=== PATIENT | male | born 1980 | race Caucasian/White ===

== ENCOUNTER 2018-04-07 10:27 | Emergency (ER) | payer BC ==
[~2018-04-07] VITALS: Ht 180.3 cm; Wt 99.8 kg
[2018-04-07 10:30] VITALS: BP_SYST 142
[2018-04-07] MEDS: KETOROLAC TROMETHAMINE 60 MG/2 ML VIAL IM ONE (10:52)
[2018-04-07 12:02] VITALS: BP_SYST 112
== END 2018-04-07 12:02 | disposition home or self-care (01) ==
LOC: SED 10:27
DX: S22.32XA Fracture of one rib, left side, initial encounter for closed fracture (principal); S00.83XA Contusion of other part of head, initial encounter; R03.0 Elevated blood-pressure reading, without diagnosis of hypertension; W22.8XXA Striking against or struck by other objects, initial encounter; Y93.89 Activity, other specified; Y92.89 Other specified places as the place of occurrence of the external cause; Y99.8 Other external cause status
CPT/HCPCS: 71046; 71100; 96372; 99284; J1885